=== PATIENT | female | born 1955 | race American Indian/Alaskan Native ===

== ENCOUNTER 2016-12-31 12:35 | Outpatient (CLI) | payer OTHER ==
--- NOTE | 2016-12-31 14:14 | Cat Scan Report ---
CT CHEST WITHOUT CONTRAST: HISTORY: Screening for lung cancer. TECHNIQUE: Helical CT with sagittal and coronal reformatted images. FINDINGS: No comparison. Perhaps mild emphysematous changes are identified in the upper lung zones. No advanced findings. The lungs are clear. No evidence for nodule, mass, infiltrate, pleural effusion or pneumothorax. No pleural abnormality. Heart size is borderline. No pericardial effusion. The thyroid gland, tracheobronchial tree and esophagus are within normal limits. The mediastinal vessels are unremarkable. No mediastinal mass or adenopathy. The left scapula is abnormal. There appears to be diffuse expansion and internal groundglass attenuation. No evidence for bony destruction or fracture. This has a chronic appearance. The remainder of the thoracic cage is unremarkable. IMPRESSION: Minimal emphysematous changes. No evidence for suspicious lung mass or adenopathy. Borderline heart size. Abnormal left scapula which has a chronic appearance. Fibrous dysplasia? Correlation with radiographs or previous studies may prove useful if needed. I favor a benign etiology.
== END 2016-12-31 12:36 | disposition home or self-care (01) ==
LOC: CT 12:35
PROVIDERS: ATTEND Family Medicine
DX: Z12.2 Encounter for screening for malignant neoplasm of respiratory organs (principal); Z87.891 Personal history of nicotine dependence
CPT/HCPCS: 71250